=== PATIENT | female | born 1955 | race Two or more races ===

== ENCOUNTER 2025-01-12 07:20 | Day surgery (SDC) | payer OTHER, SELFPAY ==
--- NOTE | 2025-01-10 06:55 | EKG_ITS ---
[facility] Test Date: 2025-01-10 Pat Name: TYREE AN Department: Room: - Gender: Female Sales Supervisor: LINDA : 1955 Requested By: Sean Mahoney Order Number: [id number] Reading MD: Sean Mahoney Measurements Intervals [place] Rate: 58 P: 49 [place]: 136 QRS: 36 QRSD: 88 T: 146 QT: 431 QTc: 424 Interpretive Statements SINUS BRADYCARDIA POSSIBLE RIGHT VENTRICULAR CONDUCTION DELAY [RSR (QR) IN V1/V2] ST DEVIATION AND MODERATE T-WAVE ABNORMALITY, CONSIDER LATERAL ISCHEMIA [-0.1+ mV T WAVE IN I/aVL/V5/V6] No previous ECG available for comparison /[id number]/[email or web address]/[id number].pdf
[2025-01-10 09:55] VITALS: BMI 32.3
[2025-01-10 11:29] LABS: Alanine Aminotransferase 34 U/L (10-49); Albumin, Serum 4.3 gm/dL (3.4-4.8); Alkaline Phosphatase 122 U/L (46-116); Anion Gap 9 (7-16); Aspartate Amino Transferase 23 U/L (0-34); BUN/Creatinine Ratio 18 Ratio (12-20); Bilirubin,Total 0.4 mg/dL (0.3-1.2); Blood Urea Nitrogen 11 mg/dL (9-23); Calcium 8.9 mg/dL (8.3-10.6); Calcium (Corrected) 8.9 mg/dL (8.5-10.1); Carbon Dioxide 24.7 mMol/L (20.0-31.0); Chloride 109 mMol/L (98-107); Creatinine (Component) 0.6 mg/dL (0.6-1.3); Globulin 2.1 gm/dL (2.3-3.5); Glucose 93 mg/dL (74-106); Osmolality,Calculated 284 (275-295); Potassium 3.4 mMol/L (3.4-5.1); Sodium 143 mMol/L (136-145); Thyroid Stimulating Hormone 1.12 uIU/mL (0.55-4.78); Total Protein 6.4 gm/dL (5.7-8.2); eGFR > 60 See Note
--- NOTE | 2025-01-11 14:06 | SUR.PREOP ---
Pt notified to come in at 0730 tomorrow for surgery.
[2025-01-12] VITALS (8 sets, daily range): BP systolic 103–133; BP diastolic 65–101; PULSE 62–116; RESP 12–17; TEMP 36.2–36.3; O2SAT 94–97; BMI 31.4
--- NOTE | 2025-01-12 10:26 | SUR.OPER ---
Madelyno Ti Implant: Ref: [id number]: [id number] SN: [id number] Exp. 08-17-26 x 1
--- NOTE | 2025-01-12 10:51 | ESOP_ITS ---
Date of Procedure 01/12/25 Pre Op Diagnosis Profound sensorineural hearing loss of the right ear Post Op Diagnosis Profound sensorineural hearing loss right ear Procedure Insertion of right Sentio implant Findings Normal postauricular anatomy Procedure Description Indications: This is a 69-year-old female with a mild sensorineural hearing loss on the right side profound loss on the left side. Treatment options were discussed and she would like to proceed with the surgery as noted above. Risk of bleeding infection and implant extrusion were discussed with her. Patient was marked and shaved in preoperative setting and transferred to the operative suite where she is anesthetized and intubated per LMA. Timeout was performed. The patient was sterilely prepped and draped. Postauricular incision was performed after injecting with 1% lidocaine with 1 100,000 dilution epinephrine. Approximately 5 cc total used. Anterior and posterior flaps were developed and the periosteum elevated off of the bone creating a pocket posteriorly for the coil to insert 2. Template was used to ensure the pocket was large enough and to lilo where the drilling would be for the transducer. The template was removed the well from the transducer was drilled down to a depth of 1 to 2 mm. Depth was confirmed with the back of the screwdriver. Ther e was no rocking motion with it. The implant was then brought into the field and carefully inserted into the pocket after dipping it in saline. It was then secured in place with the titanium plate and screws. The implant was snug. The incision was closed in a 2 layer fashion with 4-0 Vicryl and Dermabond on the skin. Patient was awakened and taken to the recovery room in stable condition Anesthesia other (General Per LMA) Implants Sentio implant right side Pathology / specimen None Estimated Blood Loss 2 Surgeon Lilo Rea DO Surgical Staff Operation Date: 01/12/25 09:30 Case Staff Anesthesiologist: Aldo Pena
--- NOTE | 2025-01-12 10:52 | SUR.PHASEI ---
pt received from OR in recovery bay 5. pt asleep but responds to voice, breathing unlabored on 2l nc. v/s stable. pt dressing to right ear cdi. report received from Suresh WHEELER and Dr. Pena.
[2025-01-12] MEDS: METOPROLOL TARTRATE INJ 1 MG/ML AMP 5 ML IVP (11:03)
--- NOTE | 2025-01-12 11:18 | SUR.PHASEI ---
pt able to tolerate oral fluids without difficulty swallowing or nausea/vomiting.
--- NOTE | 2025-01-12 11:53 | SUR.PHASEII ---
pt awake and alert, breathing unlabored on room air. v/s stable. pt dressing to right ear cdi. pt able to ambulate to wheelchair with steady gait. d/c instructions given with Vance in room, all questions answered. pt d/c via wheelchair with all belongings.
== END 2025-01-12 11:53 | disposition home or self-care (01) ==
PROVIDERS: PCP Student in an Organized Health Care Education/Training Program; Referring Provider Otolaryngology; Visit Provider Otolaryngology
PROC: (CPT 69710; principal; 2025-01-12 09:15)
DX: H90.41 Sensorineural hearing loss, unilateral, right ear, with unrestricted hearing on the contralateral side (principal); Z01.810 Encounter for preprocedural cardiovascular examination
CPT/HCPCS: 69716; 36415; 80053; 84443; 93005; A4217; A4649; J0690; J1100; J2371; J2704; J2765; J3010; J3490